=== PATIENT | male | born 1955 | race Caucasian/White ===

== ENCOUNTER 2017-07-02 11:07 | Inpatient (IN) | payer BC ==
[~2017-07-02] VITALS: Ht 182.9 cm; Wt 98.4 kg
[2017-07-02 11:07] VITALS: BP_SYST 148
[~2017-07-02 11:07] MED LIST: ASCO500T20 PO; ATEN-41 PO; BENA20TA2 PO; GLU500 PO; HYDR12.585 PO; OMEG-143 PO; PRO40 PO; ROSU10TA PO; SLOFE PO; VERA180T7 PO
[2017-07-02 13:25] LABS: BASOPHILS # (AUTO) 0.3 K/uL (0.0-0.2); BASOPHILS % (AUTO) 2.8 % (0.0-2.0); EOSINOPHILS # (AUTO) 0.2 K/uL (0.0-0.4); EOSINOPHILS % (AUTO) 1.9 % (0.0-4.0); HEMATOCRIT 43.3 % (36-54); HEMOGLOBIN 14.2 g/dL (14.0-18.0); LYMPHOCYTES # (AUTO) 1.1 K/uL (1.0-5.5); LYMPHOCYTES % (AUTO) 10.9 % (20.5-51.5); MEAN CORPUSCULAR HEMOGLOBIN 28 pg (27-31); MEAN CORPUSCULAR HGB CONC 33 % (32-36); MEAN CORPUSCULAR VOLUME 87 fL (79.0-98.0); MONOCYTES # (AUTO) 0.7 K/uL (0.0-1.0); MONOCYTES % (AUTO) 6.8 % (1.7-9.3); NEUTROPHILS % (AUTO) 77.6 % (40.0-70.0); PLATELET COUNT (AUTO) 256 K/uL (130-430); RED BLOOD CELL COUNT(AUTO) 5.01 MIL/uL (4.2-6.2); RED CELL DISTRIBUTION WIDTH 13.9 % (9.0-15.0); WHITE BLOOD COUNT (AUTO) 10.3 K/uL (4.8-10.8)
[2017-07-02 13:36] LABS: CALCIUM 11.8 mg/dL (8.4-11.0); CREATININE 1.28 mg/dL (0.55-1.30); POTASSIUM 4.9 mmol/L (3.5-5.1)
[2017-07-02 13:41] LABS: TOTAL BILIRUBIN 1.1 mg/dL (0.0-1.0)
[2017-07-02] MEDS ORDERED: GLIM2TAB2 PO (14:28)
[2017-07-02] MEDS ORDERED: FERR159T2 PO (14:28)
[2017-07-02] MEDS ORDERED: OMEG1CAP55 PO (14:28)
[2017-07-02] MEDS ORDERED: VERA180T7 PO (14:28)
[2017-07-02] MEDS ORDERED: BENA20TA2 PO (14:28)
[2017-07-02] MEDS ORDERED: ATEN-41 PO (14:28)
[2017-07-02] MEDS ORDERED: ROSU10TA PO (14:28)
[2017-07-02] MEDS ORDERED: GLU500 PO (14:28)
[2017-07-02 14:29] LABS: BILIRUBIN,URINE NEGATIVE (NEGATIVE); BLOOD, URINE NEGATIVE (NEGATIVE); CLARITY/URINE SL HAZY (CLEAR); COLOR,URINE YELLOW (YELLOW); GLUCOSE,URINE NEGATIVE (NEGATIVE); KETONES,URINE NEGATIVE (NEGATIVE); LEUKOCYTE ESTERASE ,URINE TRACE (NEGATIVE); NITRITE, URINE NEGATIVE (NEGATIVE); PROTEIN URINE NEGATIVE (NEGATIVE); UROBILINOGEN,URINE 0.2 (0.2-1.0)
[2017-07-02 14:39] LABS: RBC,URINE 0-3 /HPF (0-3)
[2017-07-02 14:40] LABS: BACTERIA,URINE MODERATE /HPF (None Seen); MUCUS,URINE 1+ /LPF (None Seen); URINE AMORPHOUS URATE 1+ /HPF (None Seen)
[2017-07-02 15:40] VITALS: BP_SYST 141
[2017-07-02] MEDS ORDERED: OMEGA PO SCH (17:00)
[2017-07-02] MEDS ORDERED: FISH OIL PO SCH (17:00)
[2017-07-02] MEDS ORDERED: EPA PO SCH (17:00)
[2017-07-02] MEDS ORDERED: DHA PO SCH (17:00)
[2017-07-02] MEDS: OMEGA-3/DHA/EPA/FISH OIL 1 GM CAPSULE PO SCH ×2 (17:28→21:32)
[2017-07-02 19:50] VITALS: BP_SYST 130
[2017-07-02] MEDS ORDERED: ROSUVASTATIN CALCIUM 5 MG/TAB (CRESTOR) PO SCH (21:00)
[2017-07-02] MEDS: SIMVASTATIN 10 MG TABLET PO SCH (21:32)
[2017-07-02] MEDS: BENAZEPRIL HCL 20 MG TABLET (LOTENSIN) PO SCH (21:33)
[2017-07-02] MEDS: HYDROcodone/ACETAMIN 5-325 MG TAB (NORCO/ VICODIN) PO PRN (23:36)
[2017-07-03] VITALS (7 sets, daily range): BP systolic 129–152
[2017-07-03] MEDS: FERROUS SULFATE 140 MG TABLET.ER PO SCH (08:40)
[2017-07-03] MEDS: HYDROcodone/ACETAMIN 5-325 MG TAB (NORCO/ VICODIN) PO PRN ×2 (08:41→20:55)
[2017-07-03] MEDS: BENAZEPRIL HCL 20 MG TABLET (LOTENSIN) PO SCH ×2 (08:41→20:52)
[2017-07-03] MEDS: OMEGA-3/DHA/EPA/FISH OIL 1 GM CAPSULE PO SCH ×4 (08:41→20:55)
[2017-07-03] MEDS: PANTOPRAZOLE SODIUM 40 MG TAB PO SCH (08:42)
[2017-07-03] MEDS: VERAPAMIL HCL 180 MG TABLET.SA PO SCH (09:00)
[2017-07-03] MEDS: GLIMEPIRIDE 2 MG TABLET PO SCH ×2 (09:00→13:42)
[2017-07-03] MEDS ORDERED: ATENOLOL 25 MG TABLET(TENORMIN) PO SCH (09:00)
[2017-07-03] MEDS: HYDROCHLOROTHIAZIDE 12.5 MG CAPSULE (HCTZ) PO SCH ×2 (09:00→13:43)
[2017-07-03] MEDS: metFORMIN HCL 500 MG TABLET PO SCH ×2 (09:00→13:42)
[2017-07-03] MEDS: ASCORBIC ACID 500 MG TABLET PO SCH ×2 (09:00→13:43)
[2017-07-03] MEDS ORDERED: FERROUS SULFATE 45 MG PO SCH (09:00)
[2017-07-03] MEDS ORDERED: COMMUNICATION ORDER XX ONE ×2 (16:30→17:30)
[2017-07-03] MEDS: SIMVASTATIN 10 MG TABLET PO SCH (20:52)
[2017-07-03] MEDS: ATENOLOL 25 MG TABLET(TENORMIN) PO SCH (20:54)
[2017-07-03] MEDS: ENOXAPARIN SODIUM 80 MG/0.8 ML SYRINGE SUBCUT SCH (20:56)
[2017-07-04 00:38] VITALS: BP_SYST 116
[2017-07-04 04:09] VITALS: BP_SYST 134
[2017-07-04] MEDS: HYDROcodone/ACETAMIN 5-325 MG TAB (NORCO/ VICODIN) PO PRN ×3 (07:49→23:16)
[2017-07-04 07:50] VITALS: BP_SYST 136
[2017-07-04] MEDS: CELECOXIB 200 MG CAPSULE PO SCH (08:20)
[2017-07-04] MEDS: OMEGA-3/DHA/EPA/FISH OIL 1 GM CAPSULE PO SCH ×4 (08:20→21:58)
[2017-07-04] MEDS: ENOXAPARIN SODIUM 80 MG/0.8 ML SYRINGE SUBCUT SCH (08:20)
[2017-07-04] MEDS: VERAPAMIL HCL 180 MG TABLET.SA PO SCH (08:21)
[2017-07-04] MEDS: BENAZEPRIL HCL 20 MG TABLET (LOTENSIN) PO SCH ×2 (08:21→22:00)
[2017-07-04] MEDS: PANTOPRAZOLE SODIUM 40 MG TAB PO SCH (08:21)
[2017-07-04] MEDS: FERROUS SULFATE 140 MG TABLET.ER PO SCH (08:22)
[2017-07-04] MEDS ORDERED: *LOVENOX0.75MG/KG Q12H/PHARMACY XX ONE (09:00)
[2017-07-04 11:41] VITALS: BP_SYST 135
[2017-07-04] MEDS: ASCORBIC ACID 500 MG TABLET PO SCH (12:00)
[2017-07-04] MEDS: GLIMEPIRIDE 2 MG TABLET PO SCH (12:35)
[2017-07-04] MEDS: metFORMIN HCL 500 MG TABLET PO SCH (12:36)
[2017-07-04] MEDS: HYDROCHLOROTHIAZIDE 12.5 MG CAPSULE (HCTZ) PO SCH (12:36)
[2017-07-04] MEDS: ATENOLOL 25 MG TABLET(TENORMIN) PO SCH ×2 (12:37→21:59)
[2017-07-04 15:31] VITALS: BP_SYST 140
[2017-07-04] MEDS: SIMVASTATIN 10 MG TABLET PO SCH (21:59)
[2017-07-05 00:35] VITALS: BP_SYST 126
[2017-07-05 04:42] VITALS: BP_SYST 145
[2017-07-05] MEDS: HYDROcodone/ACETAMIN 5-325 MG TAB (NORCO/ VICODIN) PO PRN ×3 (08:48→21:00)
[2017-07-05] MEDS: BENAZEPRIL HCL 20 MG TABLET (LOTENSIN) PO SCH ×2 (08:49→20:32)
[2017-07-05] MEDS: VERAPAMIL HCL 180 MG TABLET.SA PO SCH (08:50)
[2017-07-05] MEDS: PANTOPRAZOLE SODIUM 40 MG TAB PO SCH (08:50)
[2017-07-05] MEDS: CELECOXIB 200 MG CAPSULE PO SCH (08:51)
[2017-07-05] MEDS: OMEGA-3/DHA/EPA/FISH OIL 1 GM CAPSULE PO SCH ×4 (08:52→20:32)
[2017-07-05] MEDS: FERROUS SULFATE 140 MG TABLET.ER PO SCH (08:52)
[2017-07-05] MEDS: ENOXAPARIN SODIUM 80 MG/0.8 ML SYRINGE SUBCUT SCH (08:55)
[2017-07-05 10:56] VITALS: BP_SYST 153
[2017-07-05 11:29] VITALS: BP_SYST 147
[2017-07-05] MEDS: ASCORBIC ACID 500 MG TABLET PO SCH (12:00)
[2017-07-05] MEDS: ATENOLOL 25 MG TABLET(TENORMIN) PO SCH ×2 (12:00→20:35)
[2017-07-05] MEDS: HYDROCHLOROTHIAZIDE 12.5 MG CAPSULE (HCTZ) PO SCH (12:33)
[2017-07-05] MEDS: GLIMEPIRIDE 2 MG TABLET PO SCH (12:37)
[2017-07-05] MEDS: metFORMIN HCL 500 MG TABLET PO SCH (12:37)
[2017-07-05] MEDS ORDERED: LORazepam 2 MG/ML VIAL IVP ONE (13:30)
[2017-07-05 15:42] VITALS: BP_SYST 124
[2017-07-05] MEDS: SIMVASTATIN 10 MG TABLET PO SCH (20:32)
[2017-07-05 23:43] VITALS: BP_SYST 138
[2017-07-06 04:43] VITALS: BP_SYST 146
[2017-07-06 08:00] VITALS: BP_SYST 141
[2017-07-06] MEDS: ENOXAPARIN SODIUM 80 MG/0.8 ML SYRINGE SUBCUT SCH (09:00)
[2017-07-06] MEDS: OMEGA-3/DHA/EPA/FISH OIL 1 GM CAPSULE PO SCH ×4 (09:07→21:01)
[2017-07-06] MEDS: CELECOXIB 200 MG CAPSULE PO SCH (09:07)
[2017-07-06] MEDS: PANTOPRAZOLE SODIUM 40 MG TAB PO SCH (09:07)
[2017-07-06] MEDS: VERAPAMIL HCL 180 MG TABLET.SA PO SCH (09:08)
[2017-07-06] MEDS: BENAZEPRIL HCL 20 MG TABLET (LOTENSIN) PO SCH ×2 (09:09→21:02)
[2017-07-06] MEDS: FERROUS SULFATE 140 MG TABLET.ER PO SCH (09:09)
[2017-07-06] MEDS: HYDROcodone/ACETAMIN 5-325 MG TAB (NORCO/ VICODIN) PO PRN ×2 (09:09→17:36)
[2017-07-06] MEDS ORDERED: COMMUNICATION ORDER XX ONE (09:30)
[2017-07-06] MEDS ORDERED: LORazepam 2 MG/ML VIAL IVP ONE (09:30)
[2017-07-06] MEDS: ATENOLOL 25 MG TABLET(TENORMIN) PO SCH ×2 (12:33→21:00)
[2017-07-06] MEDS: GLIMEPIRIDE 2 MG TABLET PO SCH (12:33)
[2017-07-06] MEDS: HYDROCHLOROTHIAZIDE 12.5 MG CAPSULE (HCTZ) PO SCH (12:33)
[2017-07-06] MEDS: metFORMIN HCL 500 MG TABLET PO SCH (12:34)
[2017-07-06] MEDS: ASCORBIC ACID 500 MG TABLET PO SCH (12:34)
[2017-07-06 16:10] VITALS: BP_SYST 126
[2017-07-06 20:00] VITALS: BP_SYST 137
[2017-07-06] MEDS: SIMVASTATIN 10 MG TABLET PO SCH (21:02)
[2017-07-07] VITALS (7 sets, daily range): BP systolic 124–148
[2017-07-07] MEDS: HYDROcodone/ACETAMIN 5-325 MG TAB (NORCO/ VICODIN) PO PRN ×3 (00:02→21:58)
[2017-07-07] MEDS: ENOXAPARIN SODIUM 80 MG/0.8 ML SYRINGE SUBCUT SCH ×2 (09:00→09:57)
[2017-07-07] MEDS: FERROUS SULFATE 140 MG TABLET.ER PO SCH (09:57)
[2017-07-07] MEDS: CELECOXIB 200 MG CAPSULE PO SCH (09:58)
[2017-07-07] MEDS: PANTOPRAZOLE SODIUM 40 MG TAB PO SCH (09:58)
[2017-07-07] MEDS: OMEGA-3/DHA/EPA/FISH OIL 1 GM CAPSULE PO SCH ×4 (09:59→20:11)
[2017-07-07] MEDS: BENAZEPRIL HCL 20 MG TABLET (LOTENSIN) PO SCH ×2 (09:59→20:12)
[2017-07-07] MEDS: VERAPAMIL HCL 180 MG TABLET.SA PO SCH (10:00)
[2017-07-07] MEDS: ASCORBIC ACID 500 MG TABLET PO SCH (12:00)
[2017-07-07] MEDS: ATENOLOL 25 MG TABLET(TENORMIN) PO SCH ×2 (12:00→20:13)
[2017-07-07] MEDS: GLIMEPIRIDE 2 MG TABLET PO SCH (13:19)
[2017-07-07] MEDS: metFORMIN HCL 500 MG TABLET PO SCH (13:20)
[2017-07-07] MEDS: HYDROCHLOROTHIAZIDE 12.5 MG CAPSULE (HCTZ) PO SCH (13:20)
[2017-07-07] MEDS: SIMVASTATIN 10 MG TABLET PO SCH (20:12)
[2017-07-08 04:13] VITALS: BP_SYST 142
[2017-07-08 08:00] VITALS: BP_SYST 159
[2017-07-08] MEDS: OMEGA-3/DHA/EPA/FISH OIL 1 GM CAPSULE PO SCH ×2 (08:00→12:33)
[2017-07-08] MEDS: PANTOPRAZOLE SODIUM 40 MG TAB PO SCH (08:01)
[2017-07-08] MEDS: CELECOXIB 200 MG CAPSULE PO SCH (08:01)
[2017-07-08] MEDS: HYDROcodone/ACETAMIN 5-325 MG TAB (NORCO/ VICODIN) PO PRN (08:01)
[2017-07-08] MEDS: FERROUS SULFATE 140 MG TABLET.ER PO SCH (08:02)
[2017-07-08] MEDS: VERAPAMIL HCL 180 MG TABLET.SA PO SCH (08:03)
[2017-07-08] MEDS: BENAZEPRIL HCL 20 MG TABLET (LOTENSIN) PO SCH (08:04)
[2017-07-08] MEDS: ENOXAPARIN SODIUM 80 MG/0.8 ML SYRINGE SUBCUT SCH (08:04)
[2017-07-08 11:40] VITALS: BP_SYST 131
[2017-07-08 11:46] VITALS: BP_SYST 140
[2017-07-08] MEDS: ATENOLOL 25 MG TABLET(TENORMIN) PO SCH (12:00)
[2017-07-08] MEDS: GLIMEPIRIDE 2 MG TABLET PO SCH (12:33)
[2017-07-08] MEDS: ASCORBIC ACID 500 MG TABLET PO SCH (12:33)
[2017-07-08] MEDS: HYDROCHLOROTHIAZIDE 12.5 MG CAPSULE (HCTZ) PO SCH (12:33)
[2017-07-08] MEDS: metFORMIN HCL 500 MG TABLET PO SCH (12:33)
[2017-07-08 16:11] VITALS: BP_SYST 144
== END 2017-07-08 17:36 | disposition home or self-care (01) | DRG 605 ==
LOC: SED 11:07 → UNDOADMOB 14:54 → SMU 14:54 → UNDOADMIN 14:54 → SMU 14:56 → OBSVTOIN 16:52 → INTOOBSV 16:52 → UNDOADMOB 07-03 16:55 → SMU 07-03 16:55 → INTOOBSV 07-03 16:55 → OBSVTOIN 07-03 16:55
PROVIDERS: ADMIT Family Medicine; ATTEND Family Medicine
DX: S40.012A Contusion of left shoulder, initial encounter (principal); G82.20 Paraplegia, unspecified; S46.012A Strain of muscle(s) and tendon(s) of the rotator cuff of left shoulder, initial encounter; E11.9 Type 2 diabetes mellitus without complications; W19.XXXA Unspecified fall, initial encounter; E78.5 Hyperlipidemia, unspecified; K21.9 Gastro-esophageal reflux disease without esophagitis; M62.50 Muscle wasting and atrophy, not elsewhere classified, unspecified site; I10 Essential (primary) hypertension; Y93.89 Activity, other specified; Y92.89 Other specified places as the place of occurrence of the external cause; Y99.8 Other external cause status; Z79.899 Other long term (current) drug therapy; Z86.010 Personal history of colon polyps; Z79.84 Long term (current) use of oral hypoglycemic drugs
CPT/HCPCS: 36415; 73030; 73221; 80053; 81000-TC; 82962; 85025; 87086; 97110-GP; 97530-GP; 99285; G0378; J1650; J2060

== ENCOUNTER 2023-06-28 11:27 | Emergency (ER) | payer BC, OTHER ==
[~2023-06-28] VITALS: Ht 182.9 cm; Wt 95.3 kg
[~2023-06-28 11:27] MED LIST changes: +BENA-6 PO; -BENA20TA2 PO; +FERR159T2 PO; +GLIM2TAB PO; +OMEG1CAP55 PO; -ROSU10TA PO; +ROSU10TA2 PO; +VERA180T59 PO; -VERA180T7 PO
[2023-06-28 11:31] VITALS: BP_SYST 164; PULSE 72; RESP 16; TEMP 98.6; O2SAT 98
[2023-06-28 12:32] LABS: BILIRUBIN,URINE NEGATIVE (NEGATIVE); BLOOD, URINE 1+ (NEGATIVE); CLARITY/URINE CLEAR (CLEAR); COLOR,URINE YELLOW (YELLOW); GLUCOSE,URINE NEGATIVE (NEGATIVE); KETONES,URINE NEGATIVE (NEGATIVE); LEUKOCYTE ESTERASE ,URINE NEGATIVE (NEGATIVE); NITRITE, URINE NEGATIVE (NEGATIVE); PROTEIN URINE 1+ (NEGATIVE); UROBILINOGEN,URINE 0.2 (0.2-1.0)
[2023-06-28 12:50] LABS: BACTERIA,URINE None Seen /HPF (None Seen); URINE AMORPHOUS URATE 1+ /HPF (None Seen); WBC,URINE 0-3 /HPF (0-3)
[2023-06-28] MEDS ORDERED: DOXYCYCLINE HYCLATE 100 MG in D5W 100 ML IV ONE (15:00)
[2023-06-28 15:57] LABS: BASOPHILS % (AUTO) 0.4 % (0.0-2.0); EOSINOPHILS # (AUTO) 0.2 K/uL (0.0-0.4); EOSINOPHILS % (AUTO) 1.4 % (0.0-4.0); HEMATOCRIT 35.1 % (36-54); HEMOGLOBIN 11.4 g/dL (14.0-18.0); LYMPHOCYTES # (AUTO) 0.9 K/uL (1.0-5.5); LYMPHOCYTES % (AUTO) 8.8 % (20.5-51.5); MEAN CORPUSCULAR HEMOGLOBIN 29 pg (27-31); MEAN CORPUSCULAR HGB CONC 33 % (32-36); MEAN CORPUSCULAR VOLUME 87 fL (79.0-98.0); MONOCYTES # (AUTO) 0.8 K/uL (0.0-1.0); NEUTROPHILS # (AUTO) 8.9 K/uL (1.8-7.7); NEUTROPHILS % (AUTO) 82.4 % (40.0-70.0); PLATELET COUNT (AUTO) 292 K/uL (130-430); RED BLOOD CELL COUNT(AUTO) 4.02 MIL/uL (4.2-6.2); RED CELL DISTRIBUTION WIDTH 15.3 % (9.0-15.0); WHITE BLOOD COUNT (AUTO) 10.8 K/uL (4.8-10.8)
[2023-06-28 16:10] LABS: CALCIUM 9.9 mg/dL (8.4-11.0); CREATININE 1.44 mg/dL (0.55-1.30); POTASSIUM 4.2 mmol/L (3.5-5.1)
[2023-06-28] MEDS ORDERED: DOXY100C5 PO (18:00)
[2023-06-28] MEDS ORDERED: CEPH250C PO (18:01)
[2023-06-28] MEDS ORDERED: NACL 0.9% 1,000 ML IV ONE (18:15)
== END 2023-06-28 19:29 | disposition home or self-care (01) ==
LOC: SED 11:27
DX: N45.1 Epididymitis (principal); N43.3 Hydrocele, unspecified; N50.89 Other specified disorders of the male genital organs; R50.9 Fever, unspecified; E11.9 Type 2 diabetes mellitus without complications; I10 Essential (primary) hypertension; E78.5 Hyperlipidemia, unspecified; Z79.899 Other long term (current) drug therapy
CPT/HCPCS: 99285; 96365; 80048; 81000; 85025; 87040; 36415; 76870; 83605; J3490; J7060

== ENCOUNTER 2023-07-23 09:04 | Emergency (ER) | payer OTHER ==
[~2023-07-23] VITALS: Ht 182.9 cm; Wt 97.5 kg
[~2023-07-23 09:04] MED LIST changes: +CEPH250C PO; +DOXY100C5 PO
[2023-07-23 09:12] VITALS: BP_SYST 135; PULSE 75; RESP 18; TEMP 98.3; O2SAT 97
[2023-07-23 10:03] VITALS: BP_SYST 138; PULSE 76; RESP 18; TEMP 98.2; O2SAT 98
== END 2023-07-23 09:56 | disposition home or self-care (01) ==
LOC: SED 09:04
DX: S37.33XA Laceration of urethra, initial encounter (principal); E11.9 Type 2 diabetes mellitus without complications; I10 Essential (primary) hypertension; E78.5 Hyperlipidemia, unspecified; Z79.899 Other long term (current) drug therapy; X58.XXXA Exposure to other specified factors, initial encounter; Y93.89 Activity, other specified; Y92.89 Other specified places as the place of occurrence of the external cause; Y99.8 Other external cause status
CPT/HCPCS: 99281

== ENCOUNTER 2023-07-23 11:10 | Emergency (ER) | payer OTHER ==
[~2023-07-23] VITALS: Ht 182.9 cm; Wt 97.5 kg
[2023-07-23 11:15] VITALS: BP_SYST 140; PULSE 76; RESP 16; TEMP 97.9; O2SAT 98
[2023-07-23 12:26] VITALS: BP_SYST 135; PULSE 76; RESP 18; TEMP 98; O2SAT 98
== END 2023-07-23 12:29 | disposition home or self-care (01) ==
LOC: SED 11:10
DX: Z46.6 Encounter for fitting and adjustment of urinary device (principal); N36.8 Other specified disorders of urethra; E11.9 Type 2 diabetes mellitus without complications; I10 Essential (primary) hypertension; E78.5 Hyperlipidemia, unspecified; Z79.899 Other long term (current) drug therapy
CPT/HCPCS: 99284